=== PATIENT | female | born 1935 | race Caucasian/White ===

== ENCOUNTER 2016-11-16 11:28 | Emergency (ER) | payer OTHER ==
[~2016-11-16] VITALS: Ht 167.6 cm; Wt 56.7 kg
--- NOTE | ~2016-11-16 | CR150 ---
[facility] A Service of [facility] & [facility] RADIOLOGY TEXT RESULTS PATIENT: GERALDINE MARIA LOCATION: [facility] : 37 UNIT #: [id number] AGE: [address]: Florian Chatman MD SEX: F ORDER DR: [id number] [facility] [address] [place], [place] [address] [id number] E MR#: [id number] Acc #: [id number] NAME: GERALDINE MARIA : 1935 SEX: F STUDY DATE/TIME: 11/16/2016 12:59 UNIT: [facility] ROOM: STUDY DESCRIPTION: CR Hip Min 2 Views Lt Attending Physician: Florian Chatman M.D. Ordering Physician: Florian Chatman M.D. Primary Care Physician: Lucas Toussaint M.D. MEDICAL IMAGING REPORT This report is preliminary unless electronic signature is present EXAM AP pelvis with frog view of the left hip (2 images), 11/16/2016. HISTORY 81-year-old female with left hip pain for 5 days. Fell. COMPARISON None FINDINGS No pelvic fracture, hip fracture, or hip dislocation is seen. No sacroiliac joint or pubic symphysis diastasis is seen. There is mild, but symmetric, bilateral hip joint space narrowing without significant osteophyte formation. Calcific atherosclerotic features are demonstrated within the pelvis. IMPRESSION 1. Mild, but symmetric, bilateral hip joint space narrowing. 2. No acute abnormality in the pelvis or left hip. Dictated by... Eliana Bledsoe M.D. THIS IS AN ELECTRONICALLY VERIFIED REPORT Eliana Bledsoe M.D. at 11/17/2016 9:40 AM BERNARDINO/amrit TD: 11/16/2016 14:21 JOB #: [id number] MEDICAL IMAGING REPORT Page 1 of 1 COPY
--- NOTE | ~2016-11-16 | CR181 ---
[facility] A Service of [facility] & [facility] RADIOLOGY TEXT RESULTS PATIENT: GERALDINE MARIA LOCATION: [facility] : 37 UNIT #: [id number] AGE: [address]: Florian Chatman MD SEX: F ORDER DR: [id number] [facility] [address] [place], [place] [address] [id number] E MR#: [id number] Acc #: [id number] NAME: GERALDINE MARIA : 1935 SEX: F STUDY DATE/TIME: 11/16/2016 12:58 UNIT: [facility] ROOM: STUDY DESCRIPTION: CR Lumbar Spine 2 or 3 Views Attending Physician: Florian Chatman M.D. Ordering Physician: Florian Chatman M.D. Primary Care Physician: Lucas Toussaint M.D. MEDICAL IMAGING REPORT This report is preliminary unless electronic signature is present EXAM 3 views lumbar spine, 11/16/2016 HISTORY 81-year-old female with left hip pain and lumbar spine pain for 5 days. Fell. COMPARISON Lumbar spine MRI 04/28/2009. CT lumbar spine 08/07/2004. FINDINGS No acute lumbar spine fracture is seen. There is approximately 2 mm anterolisthesis L4 upon L5 likely related to facet arthropathy at that level. Facet arthropathy is also thought to be present at L5-S1. Disc space height appears fairly well maintained at each lumbar level. Dense calcific atherosclerosis is seen within the abdominal aorta. A surgical clip is present within the right upper quadrant of the abdomen. No sacroiliac joint diastasis is seen. IMPRESSION 1. No acute lumbar spine fracture. 2. 2 mm (grade 1) anterolisthesis L4 upon L5 is thought to be related to advanced facet arthropathy at that level. 3. Facet arthropathy is also present at L5-S1. 4. Advanced calcific atherosclerosis within the abdominal aorta. Dictated by... Eliana Bledsoe M.D. THIS IS AN ELECTRONICALLY VERIFIED REPORT Eliana Bledsoe M.D. at 11/17/2016 9:40 AM [facility] A Service of [facility] & [facility] RADIOLOGY TEXT RESULTS PATIENT: GERALDINE MARIA LOCATION: [facility] : 39 UNIT #: [id number] AGE: [address]: Florian Chatman MD SEX: F ORDER DR: BERNARDINO/sue TD: 11/16/2016 14:12 JOB #: [id number] MEDICAL IMAGING REPORT Page 1 of 1 COPY
[2016-11-21] MEDS ORDERED: PRAVACHOL PO (16:04)
[2016-11-21] MEDS ORDERED: LEVO-T100 MCG PO (16:05)
[2016-11-21] MEDS ORDERED: LISINOPRIL PO (16:05)
[2016-11-21] MEDS ORDERED: NOVOLOG100 UNITS/ SUBQ (16:09)
[2016-11-21] MEDS ORDERED: PATIENT'S PHARMACY (16:10)
[2016-11-21] MEDS ORDERED: LANTUS SOL100 UNIT/1 SUBQ (16:10)
[2016-11-23] MEDS ORDERED: TYL325 PO (12:05)
== END 2016-11-16 14:24 | disposition home or self-care (01) ==
LOC: CED 11:28
DX: S70.02XA Contusion of left hip, initial encounter (principal); S30.0XXA Contusion of lower back and pelvis, initial encounter; E11.9 Type 2 diabetes mellitus without complications; W22.8XXA Striking against or struck by other objects, initial encounter
CPT/HCPCS: 72100; 73502; 82947; 99284